=== PATIENT | female | born 1970 | race Caucasian/White ===

== ENCOUNTER 2017-04-15 17:34 | Outpatient (CLI) ==
--- NOTE | 2017-04-16 07:45 | DI ---
EXAM: Left knee a four views HISTORY: Acute pain of both knees COMPARISON: None FINDINGS: No fracture or dislocation. Small tricompartmental osteophytes. The medial, lateral, and patellofemoral compartments are normal in height. No joint effusion. Mild quadriceps and patellar t endon enthesopathy. IMPERSSION: Mild tricompartmental osteoarthritis.
--- NOTE | 2017-04-16 07:47 | DI ---
EXAM: Right knee four views HISTORY: Acute pain of both knees, no known injury COMPARISON: 12/07/2012 FINDINGS: No fracture or dislocation. Minimal tricompartmental osteophyte formation. The medial, l ateral, and patellofemoral compartments are normal in height. No joint effusion. Mild quadriceps and patellar tendon enthesopathy. IMPERSSION: Minimal osteoarthritis.
== END 2017-04-15 17:35 | disposition home or self-care (01) ==
LOC: RAD 17:34
PROVIDERS: ATTEND Physician Assistant
DX: M25.561 Pain in right knee (principal); M25.562 Pain in left knee

== ENCOUNTER 2018-08-01 13:23 | Emergency (ER) ==
[2018-08-01 13:30] VITALS: BP 144/90; TEMP 98.3; BMI 26.6
[2018-08-01] MEDS ORDERED: PREDNISONE PO STA (13:54)
[2018-08-01] MEDS ORDERED: DUONEB NEB STA (13:54)
[2018-08-01] MEDS ORDERED: ZITHROMAX PO STA (13:55)
--- NOTE | 2018-08-01 14:08 | ED.PDOC ---
General ED Provider: Dr. TYRELL CAPPS Chief Complaint: Sore Throat Stated Complaint: sore throat Time Seen by Physician: 13:40 Mode of Arrival: Walk-In Information Source: Patient Exam Limitations: No limitations Primary Care Provider: SANFORD BARBOSA Nursing and Triage Documentation Reviewed and Agree: Yes Does patient meet sepsis criteria?: No System Inflammatory Response Syndrome: Not Applicable (seen with gisella at all times ) Sepsis Protocol: For patient's 13 years and over: Temp is 96.8 and below OR 101 and greater Pulse >90 BPM Resp >20/minute Acutely Altered Mental Status Are patient's symptoms suggestive of a new infection, such as: -Pneumonia -Skin, Soft Tissue -Endocarditis -UTI -Bone, Joint Infection -Implantable Device -Acute Abdominal Infection -Wound Infection -Meningitis -Blood Stream Catheter Infection -Unknown Respiratory Complaint Exam - Respiratory Complaint/Exam Onset/Duration: 3 days Symptoms Are: Still present Timing: Intermittent Initial Severity: Mild Current Severity: Mild Location: Nose, Throat, Chest Character: Reports: Dry cough Aggravating: Reports: URI Alleviating: Reports: None Associated Signs and Symptoms: Reports: URI, Nasal congestion, Sore throat. Denies: Rapid breathing, Dyspnea, Fever, Chills, Chest pain, Pleuritic chest pain, Wheezing, Hemoptysis, Dizziness, Calf pain, Calf swelling, Edema, Hoarseness, Sinus discomfort, Vomiting, Weight loss, Decreased oral intake, Increased thirst, Increased appetite, Increased urination History of Healthcare-Acquired Pneumonia: No Related Surgical History: Reports: None Pulmonary Embolism Risk Factors: None Cardiac Risk Factors: Reports: None Pseudomonas Risk Factors: Reports: None Tuberculosis Risk Factors: Reports: None Status Asthmaticus Risk Factors: Reports: None Home Oxygen Use: No Recent Stress Test: No Recent Echo/LV Function: No Current Antibiotic Use: No Current Asthma Medication Use: No Respiratory Distress: None Inadequate Respiratory Effort: No Dysphagia Present: No Stridor Present: No JVD Present: No Accessory Muscle Use: No Retractions: Not Present Diminished Breath Sounds: No Sinus Tenderness: Frontal Grunting Respirations: No Kussmaul Respirations: No Differential Diagnoses: Pneumonia, Bronchitis, URI Review of Systems - Review Of Systems Constitutional: Reports: Malaise Eyes: Reports: No symptoms Ears, Nose, Mouth, Throat: Reports: Throat pain Respiratory: Reports: Cough Cardiac: Reports: No symptoms GI: Reports: No symptoms : Reports: No symptoms Musculoskeletal: Reports: No symptoms Skin: Reports: No symptoms Neurological: Reports: No symptoms Endocrine: Reports: No symptoms Hematologic/Lymphatic: Reports: No symptoms All Other Systems: Reviewed and Negative Past Medical History - Past Medical History Previously Healthy: Yes Endocrine: Reports: None Cardiovascular: Reports: None Respiratory: Reports: None Hematological: Reports: None Gastrointestinal: Reports: None Genitourinary: Reports: None Neuro/Psych: Reports: None Musculoskeletal: Reports: None Cancer: Reports: None Last Menstrual Period: n/a - Surgical History General Surgical History: Reports: None - Family History Family History: Reports: None - Social History Smoking Status: Current every day smoker Hx Substance Use: No Alcohol Screening: Occasionally Physical Exam - Physical Exam Appearance: Ill-appearing Ill-appearing: Mild Eyes: JENNIFER, EOMI, Conjunctiva clear ENT: Erythema Respiratory: Rhonchi Cardiovascular: RRR, Pulses normal, No rub, No murmur GI/: Soft, Nontender, No masses, Bowel sounds normal, No Organomegaly Musculoskeletal: Normal strength, ROM intact, No edema, No calf tenderness Skin: Warm, Dry, Normal color Neurological: Sensation intact, Motor intact, Reflexes intact, Cranial nerves intact, Alert, Oriented Psychiatric: Affect appropriate, Mood appropriate Critical Care Note - Critical Care Note Total Time (mins): 0 Course - Course Hematology/Chemistry: 08/01/18 14:10 Orders, Labs, Meds: Lab Review 08/01/18 08/01/18 14:10 14:23 WBC 16.07 H RBC 4.24 Hgb 13.1 Hct 39.8 MCV 93.9 MCH 30.9 MCHC 32.9 RDW Coeff of Fuentes 14.8 Plt Count 436 Immature Gran % (Auto) 0.4 Neut % (Auto) 54.9 Lymph % (Auto) 25.9 Carlisle % (Auto) 9.9 Eos % (Auto) 8.0 H Baso % (Auto) 0.9 Immature Gran # (Auto) 0.1 Neut # (Auto) 8.8 H Lymph # (Auto) 4.2 H Carlisle # (Auto) 1.6 Eos # (Auto) 1.3 H Baso # (Auto) 0.1 Influ A Molecular Assay Negative by naat Influ B Molecular Assay Negative by naat Orders Category Date Time Status NEBULIZER TREATMENT Stat CARDIO 08/01/18 13:54 Completed CBC W/ AUTO DIFF Stat LAB 08/01/18 14:10 Completed FLU A/B MOLECULAR Stat LAB 08/01/18 14:23 Completed MOLECULAR GROUP A STREP Stat LAB 08/01/18 14:23 Completed Azithromycin [Zithromax] MEDS 08/01/18 13:55 Discontinued 1,000 mg PO ONCE STA Ipratropium/Albuterol Neb [Duoneb] MEDS 08/01/18 13:54 Discontinued 1 vial NEB ONCE STA Prednisone MEDS 08/01/18 13:54 Discontinued 40 mg PO ONCE STA CHEST, 2 VIEWS PA & LAT Stat RADS 08/01/18 13:54 Completed Medications Discontinued Medications Generic Name Dose Route Start Last Admin Trade Name Freq PRN Reason Stop Dose Admin Albuterol/Ipratropium 1 vial 08/01/18 13:54 08/01/18 14:11 Duoneb NEB 08/01/18 13:55 1 vial ONCE STA Administration Azithromycin 1,000 mg 08/01/18 13:55 08/01/18 14:18 Zithromax PO 08/01/18 13:56 1,000 mg ONCE STA Administration Prednisone 40 mg 08/01/18 13:54 08/01/18 14:18 Prednisone PO 08/01/18 13:55 40 mg ONCE STA Administration Vital Signs: Temp Pulse Resp BP Pulse Ox 08/01/18 13:24 98.3 F 79 20 144/90 H 95 Departure - Departure Time of Disposition: 15:00 Disposition: HOME SELF-CARE Discharge Problem: Viral syndrome, Bronchitis Pharyngitis Qualifiers: Pharyngitis/tonsillitis etiology: unspecified etiology Qualified Code(s): J02.9 - Acute pharyngitis, unspecified Instructions: Pharyngitis (ED), Acute Bronchitis (ED) Condition: Good Pt referred to PMD for follow-up: Yes IPMP verified?: No Additional Instructions: Please call your Family Physician as soon as possible to schedule a follow-up appointment.START PILLS IN AM Allergies/Adverse Reactions: Allergies erythromycin base [From Erythrocin] Adverse Reaction (Verified 08/01/18 13:30) Home Medications: Ambulatory Orders Gabapentin 800 mg PO TID 08/01/18 Hydrocodone Bit/Acetaminophen [Carlisle 10-325] 2 tab PO TID 08/01/18 Tizanidine HCl [Zanaflex] 4 mg PO Q4H PRN 08/01/18 Tramadol HCl [Ultram] 50 mg PO TID PRN 08/01/18 Disposition Discussed With: Patient, Family
--- NOTE | 2018-08-01 14:23 | DI ---
Exam: Two views of the chest. Comparison: 03/04/2015. Reason for exam: Cough. FINDINGS: No pneumothorax, pleural effusion, or focal consolidation. The cardiac silhouette is not enlarged. The imaged osseous structures appear grossly unremarkable without acute fracture. Operati ve changes are seen in the cervical spine and right humeral head. Impression: No acute cardiopulmonary process.
== END 2018-08-01 15:11 | disposition home or self-care (01) ==
LOC: ED 13:23
DX: J20.9 Acute bronchitis, unspecified (principal); J02.9 Acute pharyngitis, unspecified; F17.210 Nicotine dependence, cigarettes, uncomplicated
CPT/HCPCS: 36415; 85025; 87502; 87651; 94640; 99283